=== PATIENT | male | born 1965 | race African-American/Black ===

== ENCOUNTER 2021-12-18 18:41 | Inpatient (IN) | payer SELFPAY ==
[~2021-12-18] VITALS: Ht 175.3 cm; Wt 70.0 kg
[2021-12-18 19:38] LABS: BASOPHILS % 0.4 % (0.0-2.0); HEMATOCRIT. 39.5 % (42.0-52.0); HEMOGLOBIN. 12.7 g/dL (14.0-18.0); LYMPHOCYTES % 26.3 % (20.0-50.0); MEAN CORPUSCULAR HEMOGLOBIN 28.6 pg (28.0-32.0); MEAN PLATELET VOLUME 8.7 fl (7.4-10.4); MONOCYTES % 5.6 % (2.0-8.0); NEUTROPHILS % 66.7 % (40.0-76.0); PLATELET 252 x1000/uL (130-400); RED BLOOD CELL COUNT 4.44 mill/uL (4.7-6.1); RED CELL DISTRIBUTION WIDTH 14.4 % (11.6-14.6)
[2021-12-18 19:43] LABS: CHLORIDE 104 mEq/L (98-107)
[2021-12-18] MEDS ORDERED: ASPIRIN 325MG EC TABLET PO ONE (19:45)
[2021-12-18 19:48] LABS: ETHANOL BLOOD < 10 mg/dL
[2021-12-18 21:09] LABS: CLARITY URINE CLEAR (CLEAR); COLOR URINE YELLOW (YELLOW); KETONES URINE TRACE (NEGATIVE); LEUKOCYTE ESTERASE URINE NEGATIVE (NEGATIVE); NITRITE URINE NEGATIVE (NEGATIVE); OCCULT BLOOD URINE TRACE (NEGATIVE); PH URINE 5.5 (4.5-8.0); PROTEIN URINE NEGATIVE (NEGATIVE); SPECIFIC GRAVITY URINE 1.092 (1.005-1.030)
[2021-12-18 21:31] LABS: *AMPHETAMINES SCREEN URINE NEGATIVE (NEGATIVE); *BARBITURATES SCREEN URINE NEGATIVE (NEGATIVE); *BENZODIAZEPINES SCREEN URINE NEGATIVE (NEGATIVE); *COCAINE SCREEN URINE NEGATIVE (NEGATIVE); CANNABINOID URINE SCREEN PRESUMTIVE POSITIVE (NEGATIVE); METHADONE URINE SCREEN NEGATIVE (NEGATIVE); OPIATES URINE SCREEN NEGATIVE (NEGATIVE); PHENCYCLIDINE URINE SCREEN NEGATIVE (NEGATIVE)
[2021-12-19 10:15] VITALS: BP 121/66
[2021-12-19 12:00] VITALS: BP 119/69
[2021-12-19 12:18] LABS: BASOPHILS % 0.5 % (0.0-2.0); EOSINOPHILS % 2.7 % (0.0-5.0); HEMATOCRIT. 39.3 % (42.0-52.0); HEMOGLOBIN. 13.1 g/dL (14.0-18.0); LYMPHOCYTES % 24.2 % (20.0-50.0); MEAN CORPUSCULAR HEMOGLOBIN 28.9 pg (28.0-32.0); MEAN CORPUSCULAR VOLUME 86.5 fL (80.0-94.0); MEAN PLATELET VOLUME 8.7 fl (7.4-10.4); MONOCYTES % 5.4 % (2.0-8.0); NEUTROPHILS % 67.2 % (40.0-76.0); PLATELET 245 x1000/uL (130-400); RED BLOOD CELL COUNT 4.54 mill/uL (4.7-6.1); RED CELL DISTRIBUTION WIDTH 13.8 % (11.6-14.6)
[2021-12-19 12:32] LABS: CHLORIDE 107 mEq/L (98-107)
[2021-12-19 12:39] LABS: LDL CHOLESTEROL 131 mg/dL (5-100)
[2021-12-19 12:40] LABS: HDL CHOLESTEROL 66 mg/dL (40-59)
[2021-12-19] MEDS: ASPIRIN 81MG TABLET PO SCH (14:29)
[2021-12-19] MEDS: ENOXAPARIN 40MG/0.4ML SYR SUBCUT SCH (14:29)
[2021-12-19 16:00] VITALS: BP 114/65
[2021-12-19 20:00] VITALS: BP 115/69
[2021-12-19] MEDS ORDERED: ATORVASTATIN CALCIUM 40MG TABLET PO SCH (21:00)
[2021-12-20] VITALS: BP 109/66
[2021-12-20 04:00] VITALS: BP 102/59
[2021-12-20 08:00] VITALS: BP 102/56
[2021-12-20] MEDS: ASPIRIN 81MG TABLET PO SCH (08:40)
[2021-12-20] MEDS: ENOXAPARIN 40MG/0.4ML SYR SUBCUT SCH (08:40)
== END 2021-12-20 12:05 | disposition left against medical advice (07) | DRG 47 ==
LOC: ER 18:41 → MICUSO 20:17 → EDBEDREQTM 20:32 → EDBEDREQSVC 20:32 → EDBEDREQ 20:32 → 8WST 12-19 10:36
PROVIDERS: ADMIT Internal Medicine; ATTEND Internal Medicine
DX: G45.9 Transient cerebral ischemic attack, unspecified (principal); E78.5 Hyperlipidemia, unspecified; R20.0 Anesthesia of skin
CPT/HCPCS: 36415; 70496; 70498; 71045; 80048; 80053; 80061; 80305; 80320; 81003; 83036; 84484; 85025; 93005; 99291; J1650; G0480